=== PATIENT | male | born 1955 | race Caucasian/White ===

== ENCOUNTER 2018-08-17 07:43 | Day surgery (SDC) | payer OTHER ==
[2018-08-17] MEDS ORDERED: Lidocaine 2% 100 MG/5 ML Syringe IVPUSH ONE (07:44)
[2018-08-17] MEDS ORDERED: fentaNYL 100 MCG/2 ML SDV IV ONE (07:44)
[2018-08-17] MEDS ORDERED: Propofol 200 MG/20 ML SDV IV ONE (07:44)
[2018-08-17] MEDS ORDERED: Dexamethasone 4 MG/ML 5 ML MDV IVPUSH ONE (07:44)
[2018-08-17] MEDS ORDERED: Lactated Ringers 1,000 ML IV ONE (07:44)
[2018-08-17] MEDS ORDERED: Ketorolac 30 MG/ML SDV IVPUSH ONE (07:44)
[2018-08-17] MEDS ORDERED: Ondansetron 4 MG/2 ML SDV IVPUSH ONE (07:44)
[2018-08-17] MEDS ORDERED: Midazolam 1 MG/ML 2 ML SDV IV ONE (07:44)
[2018-08-17] MEDS ORDERED: Lactated Ringers 1,000 ML IV SCH (07:45)
[2018-08-17] MEDS: ceFAZolin 2 GM in Premix Bag 1 BAG IV ONE ×2 (09:45→10:14)
[2018-08-17] MEDS ORDERED: Bupivacaine 0.5% 30 ML SDV ONE (10:24)
[2018-08-17] MEDS ORDERED: Lidocaine 1% with EPINEPHrine 1:100,000 20 ML MDV ONE (10:25)
[2018-08-17] MEDS ORDERED: Acetaminophen/HYDROcodone 325-5 MG Tab PO PRN (10:38)
--- NOTE | 2018-08-17 10:43 | PCM.OPNOTE ---
- General Post-Op/Procedure Note Date of Surgery/Procedure: 08/17/18 Operative Procedure(s): umbilical hernia repair with mesh Findings: 3 cm defect Pre Op Diagnosis: umbilical hernia withhout obstruction or gangrene Post-Op Diagnosis: Same Anesthesia Technique: General LMA, Local (10 ml 1 % lido with epi/0.5% buvipicaine) Primary Surgeon: Ananth Alcantara Anesthesia Provider: Andrés Maher Pathology: none Complications: None Condition: Good Free Text/Narrative:: see dictation
--- NOTE | 2018-08-17 10:50 | PREOP ---
ADMISSION DATE: 08/17/2018 CHIEF COMPLAINT: Umbilical hernia. HISTORY OF PRESENT ILLNESS: This is a 62-year-old white male, referred with a history of umbilical hernia, is asymptomatic. Has had a previous repair in the past that is subsequently broken down. He reports no obstructive symptoms. MEDICATIONS: 1. Janumet 50-1000 mg twice a day with meals. 2. Lipitor 20 mg every night at bedtime. 3. Lisinopril 5 mg once a day. 4. Ecotrin 81 mg daily. ALLERGIES: He has no known drug allergies. PAST MEDICAL HISTORY: Significant for diabetes mellitus, sleep apnea, obesity, as well as hypertriglyceridemia. PAST SURGICAL HISTORY: Significant for colonoscopy, laparoscopic umbilical hernia repair. FAMILY HISTORY: Significant for coronary heart disease, cirrhosis of the liver, and diabetes mellitus. SOCIAL HISTORY: The patient is . He has 3 children. 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 Does not smoke and does have a history of chewing tobacco. REVIEW OF SYSTEMS: CONSTITUTIONAL: Negative. HEENT: Negative. Eyes are negative. RESPIRATORY: Negative. CARDIOVASCULAR: Negative. GASTROINTESTINAL: Negative. GENITOURINARY: Negative. MUSCULOSKELETAL: He does have some occasional back pain. PHYSICAL EXAMINATION: GENERAL: This is a well-developed, well-nourished white male, appearing in no acute distress. HEENT: Exam was grossly within normal limits. LUNGS: Clear to auscultation. HEART: Regular rate and rhythm. Evaluation of the umbilicus revealed a small reducible hernia in the periumbilical area. SKIN: Clear. ASSESSMENT: Reducible umbilical hernia. PLAN: Open umbilical herniorrhaphy. Procedure and risks were explained to the patient to include bleeding, infection, injury to the underlying bowel as well as use of mesh. The patient expresses understanding and he asked us to proceed. /[id number] /MODL
[2018-08-17 12:20] VITALS: BP 114/61
--- NOTE | 2018-08-17 13:43 | OR ---
DATE OF OPERATION: 08/17/2018 SURGEON: Ananth Alcantara MD PROCEDURE PERFORMED: Umbilical hernia repair. PREOPERATIVE DIAGNOSIS: Umbilical hernia without mention of obstruction or gangrene. POSTOPERATIVE DIAGNOSIS: Umbilical hernia without mention of obstruction or gangrene. INDICATIONS FOR PROCEDURE: This is a 62-year-old white male who presents with a reducible umbilical hernia. Apparently, he has had a laparoscopic repair performed in the past. Hernia is present again and it is causing him no obstructive symptoms. INTRAOPERATIVE FINDINGS: The patient had a 3-cm defect, repaired with an 8.[address] hernia patch, reference number [id number], lot number [id number] with an expiration date of 01/18/2020. ANESTHESIA: A total of 10 mL of 1:1 mixture of 1% lidocaine with epinephrine and 0.5% bupivacaine was used to supplement our LMA anesthetic DESCRIPTION OF OPERATION: After an excellent LMA anesthesia was administered, the patient was prepped and draped in the usual sterile manner. Approximately 5 mL of our local mixture was used to infiltrate the planned incision site as well as the region around the umbilicus. A curvilinear incision was then carried out. The underlying subcu fat was divided using a combination of electrocautery and sharp dissection. The hernia sac was exposed. It was then entered and dissected free from the surrounding structures. The preperitoneal fat was reduced as well. We then developed a plane between the pre-peritoneum and the edge of the umbilical fascia. There was no evidence of any mesh from his previous repair that was noted. After developing our plane, the Ventralex ST hernia patch was then inserted. The tail was clipped as we sewed in the mesh to the anterior abdominal wall using a running 0 Prolene. The umbilicus was then tacked to the anterior abdominal wall using two interrupted 0 Vicryls and 4-0 Vicryl was used to close the skin. Steri-Strips were applied. Prior to closure of the skin, we did inject 5 mL more of our local into the fascial area, where the hernia mesh was, to aid in postoperative analgesia. The patient tolerated the procedure well and was taken to recovery room. /[id number] /MODL
[2018-08-18] MEDS: ceFAZolin 2 GM in Premix Bag 1 BAG IV ONE (11:05)
== END 2018-08-17 12:50 | disposition home or self-care (01) ==
LOC: FB.SDS 07:43
PROVIDERS: ATTEND Surgery
DX: K42.9 Umbilical hernia without obstruction or gangrene (principal); E11.9 Type 2 diabetes mellitus without complications; G47.30 Sleep apnea, unspecified; E66.9 Obesity, unspecified; E78.1 Pure hyperglyceridemia; Z79.82 Long term (current) use of aspirin; Z79.84 Long term (current) use of oral hypoglycemic drugs; Z79.899 Other long term (current) drug therapy; Z98.890 Other specified postprocedural states; Z68.35 Body mass index [BMI] 35.0-35.9, adult
CPT/HCPCS: 82962; A9270-GY; C1781; J0690; J1100; J1885; J2001; J2250; J2405; J2704; J3010; J3490; J7120

== ENCOUNTER 2019-03-06 15:52 | Emergency (ER) | payer OTHER ==
[2019-03-06] MEDS ORDERED: Ondansetron 4 MG Tab.DIS PO ONE (15:53)
[2019-03-06] MEDS ORDERED: Sodium Chloride 0.9% 10 ML Syringe FLUSH PRN (15:59)
[2019-03-06] MEDS ORDERED: Sodium Chloride 0.9% 1,000 ML IV ONE ×2 (15:59→17:41)
[2019-03-06] MEDS ORDERED: Ondansetron 4 MG/2 ML SDV IVPUSH ONE (16:00)
[2019-03-06] MEDS ORDERED: HYDROmorphone 2 MG/ML SDV IVPUSH ONE (16:00)
--- NOTE | 2019-03-06 16:07 | EDM.PDOC ---
ED HPI GENERAL MEDICAL PROBLEM - General Chief Complaint: Flank Pain Stated Complaint: LOWER ABD AND BACK PAIN Time Seen by Provider: 03/06/19 16:01 Source of Information: Reports: Patient, Family History Limitations: Reports: No Limitations - History of Present Illness INITIAL COMMENTS - FREE TEXT/NARRATIVE: Patient developed severe right flank pain @40 min ago associated with nausea, he [facility] No relief with Hydrododone. He has noted grossly bloody urine since the procedure, and urine output has decreased throughout the day. Onset: Sudden Onset Date: 03/06/19 Onset Time: 15:15 Location: Reports: Abdomen Quality: Reports: Ache Severity: Severe Associated Symptoms: Reports: Nausea/Vomiting Treatments [employer]: Reports: Other (see below) (Valentine 5/325 two tablets) right flank Pain Score (Numeric/FACES): 10 - Related Data Allergies Allergy/AdvReac Type Severity Reaction Status Date / Time No Known Allergies Allergy Verified 08/16/18 14:42 Home Meds: Home Meds Aspirin [Adult Low Dose Aspirin EC] 81 mg PO DAILY 10/08/13 [History] metFORMIN HCl [Metformin HCl] 1,000 mg PO BIDAC 10/08/13 [History] Blood-Glucose Meter [Onetouch Verio] 1 strip .XX DAILY 08/16/18 [History] Lancets [Onetouch Delica] 1 each .XX DAILY 08/16/18 [History] Lisinopril 1 tab PO DAILY 08/16/18 [History] atorvaSTATin [Lipitor] 1 tab PO BEDTIME 08/16/18 [History] Acetaminophen/HYDROcodone [Valentine 325-5 MG] 1 - 2 tab PO Q6H PRN #20 tab [Rx] Celecoxib [CeleBREX] 200 mg PO BID #10 cap 08/17/18 [Rx] Docusate Sodium [Colace] 100 mg PO BID #20 capsule 08/17/18 [Rx] Past Medical History HEENT History: Reports: Impaired Vision Cardiovascular History: Reports: Other (See Below) Other Cardiovascular History: ABNORMAL EKG AT ONE TIME BUT NOTHING EVERY CAME OF IT. Respiratory History: Reports: None Gastrointestinal History: Reports: GERD Genitourinary History: Reports: Renal Calculus Musculoskeletal History: Reports: Back Pain, Chronic Endocrine/Metabolic History: Reports: Diabetes, Type II, Obesity/BMI 30+ - Infectious Disease History Infectious Disease History: Reports: Chicken Pox - Past Surgical History HEENT Surgical History: Reports: None Respiratory Surgical History: Reports: None GI Surgical History: Reports: Cholecystectomy, Colonoscopy, Hernia, Abdominal, Other (See Below) Other GI Surgeries/Procedures: KIDNEY STONE BLASTED. Social & Family History - Family History Family Medical History: Noncontributory - Caffeine Use Caffeine Use: Reports: Soda ED ROS GENERAL - Review of Systems Review Of Systems: ROS reveals no pertinent complaints other than HPI. ED EXAM, GI/ABD - Physical Exam Exam: See Below Exam Limited By: No Limitations General Appearance: Alert, WD/WN, Mild Distress Ears: Normal External Exam Nose: Normal Inspection Throat/Mouth: No Airway Compromise Head: Atraumatic, Normocephalic Neck: Full Range of Motion Respiratory/Chest: No Respiratory Distress GI/Abdominal Exam: Normal Bowel Sounds, Soft, Tender (moderate rlq). No: Guarding Back Exam: Full Range of Motion Extremities: Normal Range of Motion Neurological: Alert, Normal Cognition Psychiatric: Normal Affect Skin Exam: Warm, Dry, Intact Course - Vital Signs Last Recorded V/S: Last Vital Signs Temp 36.8 C 03/06/19 19:20 Pulse 87 03/06/19 19:20 Resp 20 03/06/19 19:20 BP 147/78 H 03/06/19 19:20 Pulse Ox 95 03/06/19 19:20 - Orders/Labs/Meds Orders: Active Orders 24 hr Category Date Time Status Bladder Scan [RC] ASDIRECTED Care 03/06/19 15:59 Active Abdomen Pelvis wo Cont [CT] Stat Exams 03/06/19 16:01 Taken Saline Lock Insert [OM.PC] Routine Oth 03/06/19 15:59 Ordered Labs: Laboratory Tests 03/06/19 03/06/19 03/06/19 Range/Units 16:10 16:10 17:36 WBC 6.7 (4.5-12.0) X10-3/uL RBC 4.73 (4.30-5.75) x10(6)uL Hgb 14.6 (13.5-17.8) g/dL Hct 43.4 (30.0-51.3) % MCV 91.6 (80-96) fL MCH 30.9 (27.7-33.6) pg MCHC 33.7 (32.2-35.4) g/dL RDW 12.3 (11.5-15.5) % Plt Count 141 (125-369) X10(3)uL MPV 7.1 L (7.4-10.4) fL Neut % (Auto) 80.3 (46-82) % Lymph % (Auto) 10.0 L (13-37) % [place] % (Auto) 6.1 (4-12) % Eos % (Auto) 1 (1.0-5.0) % Baso % (Auto) 2 (0-2) % Neut # (Auto) 5.2 (1.6-8.3) # Lymph # (Auto) 0.7 (0.6-5.0) # [place] # (Auto) 0.4 (0.0-1.3) # Eos # (Auto) 0.1 (0.0-0.8) # Baso # (Auto) 0.2 (0.0-0.2) # Sodium 137 (135-145) mmol/L Potassium 3.9 (3.5-5.3) mmol/L Chloride 100 (100-110) mmol/L Carbon Dioxide 26 (21-32) mmol/L BUN 13 (7-18) mg/dL Creatinine 1.2 (0.70-1.30) mg/dL Est Cr Clr Drug Dosing TNP Estimated GFR (MDRD) > 60 (>60) BUN/Creatinine Ratio 10.8 (9-20) Glucose 233 H (80-116) mg/dL Calcium 8.6 (8.6-10.2) mg/dL Total Bilirubin 0.7 (0.1-1.3) mg/dL AST 44 H (5-25) IU/L ALT 58 H (12-36) U/L Alkaline Phosphatase 61 (56-112) IU/L Total Protein 7.2 (6.0-8.0) g/dL Albumin 3.6 (3.2-4.6) g/dL Globulin 3.6 g/dL Albumin/Globulin Ratio 1.0 Urine Color Yellow (YELLOW) Urine Appearance Clear (CLEAR) Urine pH 7.0 H (5.0-6.5) Ur Specific [place] 1.005 L (1.010-1.025) Urine Protein Negative (NEGATIVE) mg/dL Urine Glucose (UA) >1000 H (NORMAL) mg/dL Urine Ketones 15 H (NEGATIVE) mg/dL Urine Occult Blood Large H (NEGATIVE) Urine Nitrite Negative (NEGATIVE) Urine Bilirubin Negative (NEGATIVE) Urine Urobilinogen Normal (NEGATIVE) mg/dL Ur Leukocyte Esterase Negative (NEGATIVE) Urine RBC 30-40 H (0-5) Urine WBC 0-5 (0-5) Ur Squamous Epith Cells Few H (NS,R,O) Amorphous Sediment Few Urine Bacteria Few H (NS) Meds: Medications Discontinued Medications Generic Name Dose Route Start Last Admin Trade Name Freq PRN Reason Stop Dose Admin Hydromorphone HCl 1 mg 03/06/19 16:00 03/06/19 16:14 Dilaudid IVPUSH 03/06/19 16:01 1 mg ONETIME ONE Administration Sodium Chloride 1,000 mls @ 999 mls/hr 03/06/19 15:59 03/06/19 16:37 Normal Saline IV 03/06/19 16:59 999 mls/hr .BOLUS ONE Administration Sodium Chloride 1,000 mls @ 999 mls/hr 03/06/19 17:41 03/06/19 17:36 Normal Saline IV 03/06/19 18:41 999 mls/hr .BOLUS ONE Administration Ketorolac Tromethamine 15 mg 03/06/19 17:29 03/06/19 17:35 Toradol IVPUSH 03/06/19 17:30 15 mg ONETIME ONE Administration Ondansetron HCl 4 mg 03/06/19 16:00 03/06/19 16:14 Zofran IVPUSH 03/06/19 16:01 4 mg ONETIME ONE Administration Sodium Chloride 10 ml 03/06/19 15:59 03/06/19 16:19 Saline Flush FLUSH 10 ml ASDIRECTED PRN Administration Keep Vein Open Tamsulosin HCl 0.4 mg 03/06/19 16:38 03/06/19 16:56 Flomax PO 03/06/19 16:39 0.4 mg ONETIME ONE Administration - Radiology Interpretation Free Text/Narrative:: CT Abd/Pelvis w/o contrast: Two small stones a the distal right ureter with mild hydronephrosis - Re-Assessments/Exams Free Text/Narrative Re-Assessment/Exam: 03/06/19 16:05 Bladder scan: 48 ml Departure - Departure Time of Disposition: 19:25 Disposition: Home, Self-Care 01 Condition: Good Clinical Impression: Ureteric colic - Discharge Information *PRESCRIPTION DRUG MONITORING PROGRAM REVIEWED*: No *COPY OF PRESCRIPTION DRUG MONITORING REPORT IN PATIENT MARCI: Not Applicable Instructions: Kidney Stones, [id number] Referrals: Baron Aldrich MD [Primary Care Provider] - Forms: ED Department Discharge Care Plan Goals: Continue Valentine, Take Toradol and Zofran as needed Follow up as PLanned Increase your fluid intake - My Orders Last 24 Hours: My Active Orders 03/06/19 15:59 Bladder Scan [RC] ASDIRECTED Saline Lock Insert [OM.PC] Routine 03/06/19 16:01 Abdomen Pelvis wo Cont [CT] Stat - Assessment/Plan Last 24 Hours: My Active Orders 03/06/19 15:59 Bladder Scan [RC] ASDIRECTED Saline Lock Insert [OM.PC] Routine 03/06/19 16:01 Abdomen Pelvis wo Cont [CT] Stat
[2019-03-06] MEDS ORDERED: Tamsulosin 0.4 MG Cap.ER PO ONE (16:38)
[2019-03-06] MEDS ORDERED: Ketorolac 30 MG/ML SDV IVPUSH ONE (17:29)
== END 2019-03-06 19:27 | disposition home or self-care (01) ==
LOC: FB.ED 15:52
DX: N13.2 Hydronephrosis with renal and ureteral calculous obstruction (principal); E11.9 Type 2 diabetes mellitus without complications; E66.9 Obesity, unspecified; Z79.82 Long term (current) use of aspirin; Z79.84 Long term (current) use of oral hypoglycemic drugs; Z79.899 Other long term (current) drug therapy
CPT/HCPCS: 36415; 74176; 80053; 81001; 85025; 96361; 96374; 96375; 99284-25; A9270-GY; J1170; J1885; J2405; J7030

== ENCOUNTER 2019-05-14 06:45 | Day surgery (SDC) | payer OTHER ==
[~2019-05-14 06:45] MED LIST: Lactated Ringers 1,000 ML IV SCH; Sodium Chloride 0.9% 10 ML Syringe FLUSH PRN
[2019-05-14] MEDS ORDERED: Lidocaine 1% PF 2 ML SDV INJECT ONE (06:46)
[2019-05-14] MEDS ORDERED: Propofol 200 MG/20 ML SDV IV ONE (06:46)
--- NOTE | 2019-05-14 07:38 | PCM.HP.2 ---
H&P History of Present Illness - General Date of Service: 05/14/19 Admit Problem/Dx: Admission Diagnosis/Problem Admission Diagnosis/Problem Colonoscopy - History of Present Illness Initial Comments - Free Text/Narative: Pt due for 5 yr follow up . last c scope demonstrated adenomatous polyps - Related Data Allergies/Adverse Reactions: Allergies Allergy/AdvReac Type Severity Reaction Status Date / Time No Known Allergies Allergy Verified 05/14/19 07:11 Home Medications: Home Meds Aspirin [Adult Low Dose Aspirin EC] 81 mg PO DAILY 10/08/13 [History] Lisinopril 1 tab PO DAILY 08/16/18 [History] atorvaSTATin [Lipitor] 1 tab PO BEDTIME 08/16/18 [History] Ubiquinol 200 mg PO DAILY 05/10/19 [History] sitaGLIPtin Phos/Metformin HCl [Janumet 50-1,000 MG] 1 each PO BIDMEALS [History] Past Medical History HEENT History: Reports: Impaired Vision Cardiovascular History: Reports: High Cholesterol, Other (See Below) Respiratory History: Reports: Sleep Apnea Gastrointestinal History: Reports: GERD Genitourinary History: Reports: Renal Calculus Musculoskeletal History: Reports: Back Pain, Chronic Neurological History: Reports: None Psychiatric History: Reports: None Endocrine/Metabolic History: Reports: Diabetes, Type II, Obesity/BMI 30+ Hematologic History: Reports: None Immunologic History: Reports: None Oncologic (Cancer) History: Reports: None - Infectious Disease History Infectious Disease History: Reports: Chicken Pox - Past Surgical History HEENT Surgical History: Reports: None Respiratory Surgical History: Reports: None GI Surgical History: Reports: Cholecystectomy, Colonoscopy, Hernia, Abdominal, Other (See Below) Other GI Surgeries/Procedures: KIDNEY STONE BLASTED. Male Surgical History: Reports: Renal Calculus Social & Family History - Family History Family Medical History: Noncontributory - Caffeine Use Caffeine Use: Reports: Soda H&P Review of Systems - Review of Systems: Review Of Systems: See Below General: Reports: No Symptoms HEENT: Reports: No Symptoms Pulmonary: Reports: No Symptoms Cardiovascular: Reports: No Symptoms Gastrointestinal: Reports: No Symptoms Genitourinary: Reports: No Symptoms Musculoskeletal: Reports: No Symptoms Skin: Reports: No Symptoms Neurological: Reports: No Symptoms Exam - Exam Exam: See Below - Vital Signs Vital Signs: Last Vital Signs Temp 97.4 F 05/14/19 06:55 Pulse 82 05/14/19 06:55 Resp 16 05/14/19 06:55 BP 150/87 H 05/14/19 06:55 Pulse Ox 96 05/14/19 06:55 Weight: 113.806 kg - Exam General: Alert, Oriented Lungs: Clear to Auscultation, Normal Respiratory Effort Cardiovascular: Regular Rate, Regular Rhythm GI/Abdominal Exam: Normal Bowel Sounds, Soft, Non-Tender - Patient Data Lab Results Last 24 hrs: Laboratory Results - last 24 hr 05/14/19 Range/Units 07:10 POC Glucose 164 H (80-116) mg/dL Sepsis Event Note - Focused Exam Vital Signs: Vital Signs Temp Pulse Resp BP Pulse Ox 05/14/19 06:55 97.4 F 82 16 150/87 H 96 Date Exam was Performed: 05/14/19 Time Exam was Performed: 07:43 *Q Meaningful Use (ADM) - VTE *Q VTE Pharmacological Contraindications *Q: Patient Scheduled Surgery - Problem List (1) Personal history of colonic polyps SNOMED Code(s): 125405428 ICD Code: Z86.010 - PERSONAL HISTORY OF COLONIC POLYPS Status: Acute Current Visit: Yes Problem List Initiated/Reviewed/Updated: Yes Orders Last 24hrs: Active Orders 24 hr Category Date Time Status Patient Status [ADT] Routine ADT 05/14/19 06:45 Ordered Blood Glucose Check, Bedside [RC] ONETIME Care 05/14/19 06:45 Active Patient to Empty Bladder [RC] ASDIRECTED Care 05/14/19 06:45 Active Verify Patient Consent Obtain [RC] ASDIRECTED Care 05/14/19 06:45 Active Nothing Per Oral Diet [DIET] Diet 05/14/19 Breakfast Ordered Lactated Ringers [Ringers, Lactated] 1,000 ml Med 05/14/19 06:45 Active IV ASDIRECTED Sodium Chloride 0.9% [Saline Flush] Med 05/14/19 06:45 Active 10 ml FLUSH ASDIRECTED PRN Peripheral IV Insertion Adult [OM.PC] Routine Oth 05/14/19 06:45 Ordered Medication Orders Lactated Ringer's (Ringers, Lactated) 1,000 mls @ 125 mls/hr IV ASDIRECTED SHRUTHI Last Admin: 05/14/19 07:20 Dose: 125 mls/hr Sodium Chloride (Saline Flush) 10 ml FLUSH ASDIRECTED PRN PRN Reason: Keep Vein Open Assessment/Plan Comment:: for cscope procedure and risks explained to the patient. Bleeding, infection and perforation. Expressed understanding and asks us to proceed.
[2019-05-14] MEDS ORDERED: Simethicone Drops 40 MG/0.6 ML 30 ML Bottle ONE (08:37)
--- NOTE | 2019-05-14 08:56 | PCM.OPNOTE ---
- General Post-Op/Procedure Note Date of Surgery/Procedure: 05/14/19 Operative Procedure(s): c scope with bx cold forcep Findings: transverse colon polyp scattered diverticuli Pre Op Diagnosis: personal hx of colon polyp Post-Op Diagnosis: transverse colon polyp. scattered diverticuli Anesthesia Technique: MAC Primary Surgeon: Ananth Alcantara Anesthesia Provider: Andrés Maher Pathology: colon polyp Drain/Tube Comments:: see dictation Condition: Good
--- NOTE | 2019-05-14 15:19 | OR ---
DATE OF OPERATION: 05/14/2019 SURGEON: Ananth Alcantara MD PROCEDURE PERFORMED: Colonoscopy with cold forceps biopsy. PREOPERATIVE DIAGNOSIS: Personal history of colon polyps. POSTOPERATIVE DIAGNOSES: Scattered diverticula and transverse colon polyp. INDICATIONS FOR PROCEDURE: This 63-year-old white male, presents for followup scope. Last scope was 5 years ago, had some adenomatous polyps removed, presents for followup scope now. DESCRIPTION OF OPERATION: After an excellent IV sedation was administered, digital rectal exam was performed. No abnormality was noted. Flexible colonoscope was inserted and advanced to cecum. Prep was excellent. The following findings were noted. Ascending colon, unremarkable. Transverse colon, occasional diverticula. Polypoid lesion at the distal transverse colon, biopsied with cold biopsy forceps, sent for permanent. Descending colon, unremarkable. Sigmoid, scattered diverticula. Rectum and anus, unremarkable. Results will be sent to the patient by letter. He tolerated the procedure well. /[id number] /MODL
== END 2019-05-14 09:48 | disposition home or self-care (01) ==
LOC: FB.SDS 06:45
PROVIDERS: ATTEND Surgery
DX: Z12.11 Encounter for screening for malignant neoplasm of colon (principal); D12.3 Benign neoplasm of transverse colon; K57.30 Diverticulosis of large intestine without perforation or abscess without bleeding; E11.9 Type 2 diabetes mellitus without complications; E78.00 Pure hypercholesterolemia, unspecified; E78.1 Pure hyperglyceridemia; G47.30 Sleep apnea, unspecified; K21.9 Gastro-esophageal reflux disease without esophagitis; E66.9 Obesity, unspecified; Z68.35 Body mass index [BMI] 35.0-35.9, adult; Z86.010 Personal history of colon polyps; Z79.82 Long term (current) use of aspirin; Z79.84 Long term (current) use of oral hypoglycemic drugs; Z79.899 Other long term (current) drug therapy; G47.33 Obstructive sleep apnea (adult) (pediatric)
CPT/HCPCS: 82962; 88305; A9270-GY; J2001; J2704; J7120

== ENCOUNTER 2021-01-06 12:57 | Emergency (ER) | payer OTHER ==
[2021-01-06] MEDS ORDERED: Aspirin 81 MG Tab.Chew PO ONE ×2 (13:08→13:31)
[2021-01-06] MEDS ORDERED: Sodium Chloride 0.9% 1,000 ML IV ONE ×2 (13:09→14:08)
[2021-01-06] MEDS: Nitroglycerin 0.4 MG Tab.SL SL PRN ×2 (13:16→13:30)
--- NOTE | 2021-01-06 14:23 | EDM.PDOC ---
ED HPI GENERAL MEDICAL PROBLEM - General Chief Complaint: Chest Pain Stated Complaint: CHEST PAIN, DIZZINESS Time Seen by Provider: 01/06/21 13:00 Source of Information: Reports: Patient, Family History Limitations: Reports: No Limitations - History of Present Illness INITIAL COMMENTS - FREE TEXT/NARRATIVE: c/o "not feeling well" ate bfast and lunch, working on a vehicle with a helper, used a car hoist that he had picked up in [place] yesterday to move heavy parts, used a fork lift, on his feet altho not doing lifting himself did not feel well by late morning, felt a littlle dizzy and sob, slight soreness in middle of chest which resolved came in and ate lunch, was going to see Dr Aldrich PCP in clinic when his Masha, retired RN, suggested he come to the ED Masha says "he is not a complainer" never smoked, no h/o CVD, had a stress test ~[address] on arrival here with Qs in III and AVF, no ST changes, occasional PVB noted on monitor BP inc'd, given NTG SL x 2 with no change in sxs or vital signs altho BP gradually dec'd to 123/77, RR dec'd 22 to 15, HR dec'd to [address] A1C ~7 labs n FH: bros x 2 with cardiac stents, one bro has had an HI, father from an HI 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[employer], returns to school tomorrow no dizzy/CP/sob in ED, still not feeling his normal self CxR 1v is neg on prelim ED read, no infiltr/effusions, no cardiomegaly - Related Data Allergies Allergy/AdvReac Type Severity Reaction Status Date / Time No Known Allergies Allergy Verified 01/06/21 14:46 Home Meds: Home Meds Aspirin [Adult Low Dose Aspirin EC] 81 mg PO DAILY 10/08/13 [History] Lisinopril 1 tab PO DAILY 08/16/18 [History] atorvaSTATin [Lipitor] 1 tab PO BEDTIME 08/16/18 [History] sitaGLIPtin Phos/Metformin HCl [Janumet 50-1,000 MG] 1 each PO BIDMEALS 05/10/19 [History] Diltiazem HCl [Diltiazem 24Hr ER] 120 mg PO DAILY #14 cap.er.24h 01/06/21 [Rx] Nitroglycerin 0.4 mg SL Q5M PRN #20 tab.subl 01/06/21 [Rx] Semaglutide [Ozempic] 0.25 mg SQ MO 01/06/21 [History] Past Medical History HEENT History: Reports: Impaired Vision Cardiovascular History: Reports: High Cholesterol, Other (See Below) Respiratory History: Reports: Sleep Apnea Gastrointestinal History: Reports: GERD Genitourinary History: Reports: Renal Calculus Musculoskeletal History: Reports: Back Pain, Chronic Neurological History: Reports: None Psychiatric History: Reports: None Endocrine/Metabolic History: Reports: Diabetes, Type II, Obesity/BMI 30+ Hematologic History: Reports: None Immunologic History: Reports: None Oncologic (Cancer) History: Reports: None - Infectious Disease History Infectious Disease History: Reports: Chicken Pox - Past Surgical History HEENT Surgical History: Reports: None Respiratory Surgical History: Reports: None GI Surgical History: Reports: Cholecystectomy, Colonoscopy, Hernia, Abdominal, Other (See Below) Other GI Surgeries/Procedures: KIDNEY STONE BLASTED. Male Surgical History: Reports: Renal Calculus Social & Family History - Family History Family Medical History: No Pertinent Family History - Caffeine Use Caffeine Use: Reports: Soda ED ROS GENERAL - Review of Systems Review Of Systems: See Below Constitutional: Reports: No Symptoms. Denies: Fever, Chills, Malaise, Weakness, Fatigue, Diaphoresis, Decreased Appetite HEENT: Reports: No Symptoms Respiratory: Reports: Shortness of Breath, Other (has had COVID vax). Denies: Cough Cardiovascular: Reports: Chest Pain Endocrine: Reports: No Symptoms GI/Abdominal: Reports: No Symptoms : Reports: No Symptoms Musculoskeletal: Reports: No Symptoms Skin: Reports: No Symptoms Neurological: Reports: No Symptoms Psychiatric: Reports: No Symptoms Hematologic/Lymphatic: Reports: No Symptoms Immunologic: Reports: No Symptoms ED EXAM, GENERAL - Physical Exam Exam: See Below Exam Limited By: No Limitations General Appearance: Alert, WD/WN, No Apparent Distress Ears: Hearing Grossly Normal Nose: Normal Inspection Throat/Mouth: Normal Inspection, Normal Lips, Normal Teeth, Normal Voice, No Airway Compromise Head: Atraumatic, Normocephalic Neck: Normal Inspection, Supple, Non-Tender, Full Range of Motion Respiratory/Chest: No Respiratory Distress, Lungs Clear, Normal Breath Sounds, Chest Non-Tender Cardiovascular: Regular Rate, Rhythm, No Edema, No Gallop, No Murmur GI/Abdominal: Normal Bowel Sounds, Soft, Non-Tender, No Organomegaly, No Distention Back Exam: Normal Inspection, Full Range of Motion Extremities: Normal Inspection, Normal Range of Motion, Non-Tender, No Pedal Edema Neurological: Alert, Oriented, CN II-XII Intact, Normal Cognition, No Motor/Sensory Deficits Psychiatric: Normal Affect, Normal Mood Skin Exam: Warm, Dry, Intact, Normal Color, No Rash Lymphatic: No Adenopathy #1 Interpretation EKG Date: 01/06/21 Time: 12:52 Rhythm: Other (ST) Rate (Beats/Min): 116 [place]: Normal P-Wave: Present QRS: Normal QT: Normal EKG Interpretation Comments: old IWMI with Qs in III and AVF, nonspecific flat T in AVL, no acute/ischemic changes c/w 06-12-97 and same changes in III and AVF noted then #2 Interpretation EKG Date: 01/06/21 Time: 16:39 Rhythm: NSR Rate (Beats/Min): 93 [place]: Normal P-Wave: Present QRS: Normal ST-T: Normal QT: Normal EKG Interpretation Comments: EKG repeated after HR dec'd to less than 100, pt remained asxs, no change c/w previous nearly 4h earlier, no acute/ischemic changes Course - Vital Signs Last Recorded V/S: Last Vital Signs Temp 36.9 C 01/06/21 13:00 Pulse 115 H 01/06/21 13:00 Resp 16 01/06/21 13:00 BP 173/93 H 01/06/21 13:00 Pulse Ox 95 01/06/21 13:00 Orthostatic Blood Pressure [ 137/70 Standing] Orthostatic Blood Pressure [ 126/74 Sitting] Orthostatic Blood Pressure [ 142/83 Supine] - Orders/Labs/Meds Orders: Active Orders 24 hr Category Date Time Status EKG Documentation Completion [RC] ASDIRECTED Care 01/06/21 16:41 Ordered Orthostatic Vital Signs [RC] ASDIRECTED Care 01/06/21 14:08 Active CULTURE BLOOD [BC] Stat Lab 01/06/21 13:25 Received CULTURE BLOOD [BC] Urgent Lab 01/06/21 13:30 Received Nitroglycerin [Nitrostat] Med 01/06/21 13:54 Active 0.4 mg SL Q5M PRN Blood Culture x2 Reflex Set [OM.PC] Urgent Oth 01/06/21 13:17 Ordered EKG 12 Lead [EK] Routine Ther 01/06/21 13:08 Ordered EKG 12 Lead [EK] Routine Ther 01/06/21 16:41 Ordered Medication Orders Nitroglycerin (Nitroglycerin 0.4 Mg Tab.Sl) 0.4 mg SL Q5M PRN PRN Reason: Chest Pain Labs: Laboratory Tests 01/06/21 01/06/21 01/06/21 Range/Units 13:25 13:25 13:25 WBC 9.2 (3.2-10.1) x10-3/uL RBC 4.90 (3.90-5.90) x10(6)uL Hgb 15.6 (12.9-17.7) g/dL Hct 44.8 (38.3-50.1) % MCV 91.4 (80.8-98.7) fL MCH 31.9 (27.0-33.3) pg MCHC 34.8 (28.7-35.3) g/dL RDW 14.2 (12.4-15.0) % Plt Count 177 (117-477) x10(3)uL MPV 7.3 (6.7-11.0) fL Neut % (Auto) 64.5 (40.3-71.8) % Lymph % (Auto) 26.7 (15.8-45.3) % Sutter % (Auto) 6.4 (5.5-15.2) % Eos % (Auto) 2.0 (0.1-6.8) % Baso % (Auto) 0.4 (0.3-3.8) % Neut # (Auto) 5.9 (1.7-6.9) x10-3/uL Lymph # (Auto) 2.5 (0.5-4.5) x10-3/uL Sutter # (Auto) 0.6 (0.0-1.2) x10-3/uL Eos # (Auto) 0.2 (0.0-0.6) x10-3/uL Baso # (Auto) 0.0 (0.0-0.3) x10-3/uL PT (9.0-11.1) sec INR (1.00-1.24) D-Dimer, Quantitative 0.21 (0.0-0.59) mg/LFEU Sodium 138 (135-145) mmol/L Potassium 4.2 (3.5-5.3) mmol/L Chloride 100 (100-110) mmol/L Carbon Dioxide 22 (21-32) mmol/L BUN 18 (7-18) mg/dL Creatinine 1.3 (0.70-1.30) mg/dL Est Cr Clr Drug Dosing TNP Estimated GFR (MDRD) 56 L (>60) BUN/Creatinine Ratio 13.8 (9-20) Glucose 237 H (80-116) mg/dL Lactic Acid (0.4-2.0) mmol/L Calcium 9.6 (8.6-10.2) mg/dL Total Bilirubin 0.8 (0.1-1.3) mg/dL AST 25 D (5-25) IU/L ALT 37 H D (12-36) U/L Alkaline Phosphatase 67 (56-112) IU/L Troponin I (4.0-60.3) pg/mL C-Reactive Protein (0.5-0.9) mg/dL Total Protein 7.4 (6.0-8.0) g/dL Albumin 4.0 (3.2-4.6) g/dL Globulin 3.4 g/dL Albumin/Globulin Ratio 1.2 Urine Color (YELLOW) Urine Appearance (CLEAR) Urine pH (5.0-6.5) Ur Specific [place] (1.010-1.025) Urine Protein (NEGATIVE) mg/dL Urine Glucose (UA) (NORMAL) mg/dL Urine Ketones (NEGATIVE) mg/dL Urine Occult Blood (NEGATIVE) Urine Nitrite (NEGATIVE) Urine Bilirubin (NEGATIVE) Urine Urobilinogen (NEGATIVE) mg/dL Ur Leukocyte Esterase (NEGATIVE) Urine RBC (0-5) Urine WBC (0-5) Ur Squamous Epith Cells (NS,R,O) Urine Bacteria (NS) SARS-CoV-2 RNA (TOY) (NEGATIVE) 01/06/21 01/06/21 01/06/21 Range/Units 13:25 13:25 13:25 WBC (3.2-10.1) x10-3/uL RBC (3.90-5.90) x10(6)uL Hgb (12.9-17.7) g/dL Hct (38.3-50.1) % MCV (80.8-98.7) fL MCH (27.0-33.3) pg MCHC (28.7-35.3) g/dL RDW (12.4-15.0) % Plt Count (117-477) x10(3)uL MPV (6.7-11.0) fL Neut % (Auto) (40.3-71.8) % Lymph % (Auto) (15.8-45.3) % Sutter % (Auto) (5.5-15.2) % Eos % (Auto) (0.1-6.8) % Baso % (Auto) (0.3-3.8) % Neut # (Auto) (1.7-6.9) x10-3/uL Lymph # (Auto) (0.5-4.5) x10-3/uL Sutter # (Auto) (0.0-1.2) x10-3/uL Eos # (Auto) (0.0-0.6) x10-3/uL Baso # (Auto) (0.0-0.3) x10-3/uL PT 11.0 (9.0-11.1) sec INR 1.02 (1.00-1.24) D-Dimer, Quantitative (0.0-0.59) mg/LFEU Sodium (135-145) mmol/L Potassium (3.5-5.3) mmol/L Chloride (100-110) mmol/L Carbon Dioxide (21-32) mmol/L BUN (7-18) mg/dL Creatinine (0.70-1.30) mg/dL Est Cr Clr Drug Dosing Estimated GFR (MDRD) (>60) BUN/Creatinine Ratio (9-20) Glucose (80-116) mg/dL Lactic Acid 4.5 H* (0.4-2.0) mmol/L Calcium (8.6-10.2) mg/dL Total Bilirubin (0.1-1.3) mg/dL AST (5-25) IU/L ALT (12-36) U/L Alkaline Phosphatase (56-112) IU/L Troponin I 12.3 (4.0-60.3) pg/mL C-Reactive Protein (0.5-0.9) mg/dL Total Protein (6.0-8.0) g/dL Albumin (3.2-4.6) g/dL Globulin g/dL Albumin/Globulin Ratio Urine Color (YELLOW) Urine Appearance (CLEAR) Urine pH (5.0-6.5) Ur Specific [place] (1.010-1.025) Urine Protein (NEGATIVE) mg/dL Urine Glucose (UA) (NORMAL) mg/dL Urine Ketones (NEGATIVE) mg/dL Urine Occult Blood (NEGATIVE) Urine Nitrite (NEGATIVE) Urine Bilirubin (NEGATIVE) Urine Urobilinogen (NEGATIVE) mg/dL Ur Leukocyte Esterase (NEGATIVE) Urine RBC (0-5) Urine WBC (0-5) Ur Squamous Epith Cells (NS,R,O) Urine Bacteria (NS) SARS-CoV-2 RNA (TOY) (NEGATIVE) 01/06/21 01/06/21 01/06/21 Range/Units 13:25 14:21 15:00 WBC (3.2-10.1) x10-3/uL RBC (3.90-5.90) x10(6)uL Hgb (12.9-17.7) g/dL Hct (38.3-50.1) % MCV (80.8-98.7) fL MCH (27.0-33.3) pg MCHC (28.7-35.3) g/dL RDW (12.4-15.0) % Plt Count (117-477) x10(3)uL MPV (6.7-11.0) fL Neut % (Auto) (40.3-71.8) % Lymph % (Auto) (15.8-45.3) % Sutter % (Auto) (5.5-15.2) % Eos % (Auto) (0.1-6.8) % Baso % (Auto) (0.3-3.8) % Neut # (Auto) (1.7-6.9) x10-3/uL Lymph # (Auto) (0.5-4.5) x10-3/uL Sutter # (Auto) (0.0-1.2) x10-3/uL Eos # (Auto) (0.0-0.6) x10-3/uL Baso # (Auto) (0.0-0.3) x10-3/uL PT (9.0-11.1) sec INR (1.00-1.24) D-Dimer, Quantitative (0.0-0.59) mg/LFEU Sodium (135-145) mmol/L Potassium (3.5-5.3) mmol/L Chloride (100-110) mmol/L Carbon Dioxide (21-32) mmol/L BUN (7-18) mg/dL Creatinine (0.70-1.30) mg/dL Est Cr Clr Drug Dosing Estimated GFR (MDRD) (>60) BUN/Creatinine Ratio (9-20) Glucose (80-116) mg/dL Lactic Acid (0.4-2.0) mmol/L Calcium (8.6-10.2) mg/dL Total Bilirubin (0.1-1.3) mg/dL AST (5-25) IU/L ALT (12-36) U/L Alkaline Phosphatase (56-112) IU/L Troponin I (4.0-60.3) pg/mL C-Reactive Protein < 0.2 L (0.5-0.9) mg/dL Total Protein (6.0-8.0) g/dL Albumin (3.2-4.6) g/dL Globulin g/dL Albumin/Globulin Ratio Urine Color Yellow (YELLOW) Urine Appearance Clear (CLEAR) Urine pH 5.0 (5.0-6.5) Ur Specific [place] 1.020 (1.010-1.025) Urine Protein Negative (NEGATIVE) mg/dL Urine Glucose (UA) >1000 H (NORMAL) mg/dL Urine Ketones 15 H (NEGATIVE) mg/dL Urine Occult Blood Negative (NEGATIVE) Urine Nitrite Negative (NEGATIVE) Urine Bilirubin Negative (NEGATIVE) Urine Urobilinogen Normal (NEGATIVE) mg/dL Ur Leukocyte Esterase Negative (NEGATIVE) Urine RBC 0-5 (0-5) Urine WBC 0-5 (0-5) Ur Squamous Epith Cells Few H (NS,R,O) Urine Bacteria Few H (NS) SARS-CoV-2 RNA (TOY) Negative (NEGATIVE) 01/06/21 01/06/21 Range/Units 15:35 15:35 WBC (3.2-10.1) x10-3/uL RBC (3.90-5.90) x10(6)uL Hgb (12.9-17.7) g/dL Hct (38.3-50.1) % MCV (80.8-98.7) fL MCH (27.0-33.3) pg MCHC (28.7-35.3) g/dL RDW (12.4-15.0) % Plt Count (117-477) x10(3)uL MPV (6.7-11.0) fL Neut % (Auto) (40.3-71.8) % Lymph % (Auto) (15.8-45.3) % Sutter % (Auto) (5.5-15.2) % Eos % (Auto) (0.1-6.8) % Baso % (Auto) (0.3-3.8) % Neut # (Auto) (1.7-6.9) x10-3/uL Lymph # (Auto) (0.5-4.5) x10-3/uL [place] # (Auto) (0.0-1.2) x10-3/uL Eos # (Auto) (0.0-0.6) x10-3/uL Baso # (Auto) (0.0-0.3) x10-3/uL PT (9.0-11.1) sec INR (1.00-1.24) D-Dimer, Quantitative (0.0-0.59) mg/LFEU Sodium (135-145) mmol/L Potassium (3.5-5.3) mmol/L Chloride (100-110) mmol/L Carbon Dioxide (21-32) mmol/L BUN (7-18) mg/dL Creatinine (0.70-1.30) mg/dL Est Cr Clr Drug Dosing Estimated GFR (MDRD) (>60) BUN/Creatinine Ratio (9-20) Glucose (80-116) mg/dL Lactic Acid 2.4 H* (0.4-2.0) mmol/L Calcium (8.6-10.2) mg/dL Total Bilirubin (0.1-1.3) mg/dL AST (5-25) IU/L ALT (12-36) U/L Alkaline Phosphatase (56-112) IU/L Troponin I 13.4 (4.0-60.3) pg/mL C-Reactive Protein (0.5-0.9) mg/dL Total Protein (6.0-8.0) g/dL Albumin (3.2-4.6) g/dL Globulin g/dL Albumin/Globulin Ratio Urine Color (YELLOW) Urine Appearance (CLEAR) Urine pH (5.0-6.5) Ur Specific [place] (1.010-1.025) Urine Protein (NEGATIVE) mg/dL Urine Glucose (UA) (NORMAL) mg/dL Urine Ketones (NEGATIVE) mg/dL Urine Occult Blood (NEGATIVE) Urine Nitrite (NEGATIVE) Urine Bilirubin (NEGATIVE) Urine Urobilinogen (NEGATIVE) mg/dL Ur Leukocyte Esterase (NEGATIVE) Urine RBC (0-5) Urine WBC (0-5) Ur Squamous Epith Cells (NS,R,O) Urine Bacteria (NS) SARS-CoV-2 RNA (TOY) (NEGATIVE) Meds: Medications Generic Name Dose Route Start Last Admin Trade Name Freq PRN Reason Stop Dose Admin Nitroglycerin 0.4 mg 01/06/21 13:54 Nitroglycerin 0.4 Mg Tab.Sl SL Q5M PRN Chest Pain Discontinued Medications Generic Name Dose Route Start Last Admin Trade Name Freq PRN Reason Stop Dose Admin Aspirin 243 mg 01/06/21 13:31 01/06/21 13:32 Aspirin 81 Mg Tab.Chew PO 01/06/21 13:32 243 mg ONETIME ONE Administration Sodium Chloride 1,000 mls @ 999 mls/hr 01/06/21 13:09 01/06/21 13:28 Normal Saline IV 01/06/21 14:09 999 mls/hr .BOLUS ONE Administration Sodium Chloride 1,000 mls @ 999 mls/hr 01/06/21 14:08 01/06/21 14:30 Normal Saline IV 01/06/21 15:08 999 mls/hr .BOLUS ONE Administration - Re-Assessments/Exams Free Text/Narrative Re-Assessment/Exam: 01/06/21 16:43 trop x 2 neg lactic improved over 2h SG 1.020, 15 mg/dl ketones in urine HR dec'd 116 to 98 over 1.5h, still in upper 90s questionable response to NTG, says he "felt more relaxed" altho no change in vs with either NTG (pt swallowed first one, 2nd one was SL) d/w Dr Greene who did not think he met admission criteria, wondered if metformin may have affected lactic acid d/w PCP Dr Aldrich who said he "knows pt very well," agrees with outpt management pt sees Dr Aldrich q6m, has an appointment in 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, "just meetings", 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:56 HR 102 after walking length of [place] twice, no dizzy use of dilt and NTG reviewed with pt and Masha repeat EKG with HR 93 is unremarkable, no change, BP 133/79 Departure - Departure Time of Disposition: 16:50 Disposition: Home, Self-Care 01 Condition: Good (moder dehydra) Clinical Impression: Moderate dehydration, Elevated lactic acid level, Sinus tachycardia - Discharge Information *PRESCRIPTION DRUG MONITORING PROGRAM REVIEWED*: Not Applicable *COPY OF PRESCRIPTION DRUG MONITORING REPORT IN PATIENT MARCI: Not Applicable Prescriptions: Diltiazem HCl [Diltiazem 24Hr ER] 120 mg PO DAILY #14 cap.er.24h Nitroglycerin 0.4 mg SL Q5M PRN #20 tab.subl PRN Reason: Chest Pain Instructions: Sinus Tachycardia, Dehydration, Adult Forms: ED Department Discharge Additional Instructions: Continue current medications. Take diltiazem ER 120 mg 1 tab daily to help with heart circulation. For chest discomfort or shortness of breath, take a nitroglycerin under the tongue. Increase fluids without caffeine. Limit activities. Avoid exertion until cleared by Dr Aldrich to do so. See Dr Aldrich in 4 days as scheduled. Return to Emergency Department if you are feeling worse. Sepsis Event Note (ED) - Focused Exam Vital Signs: Vital Signs Temp Pulse Resp BP Pulse Ox 01/06/21 13:00 36.9 C 115 H 16 173/93 H 95 - My Orders Last 24 Hours: My Active Orders 01/06/21 13:08 EKG 12 Lead [EK] Routine 01/06/21 13:17 Blood Culture x2 Reflex Set [OM.PC] Urgent 01/06/21 13:25 CULTURE BLOOD [BC] Stat 01/06/21 13:30 CULTURE BLOOD [BC] Urgent 01/06/21 13:54 Nitroglycerin [Nitrostat] 0.4 mg SL Q5M PRN 01/06/21 14:08 Orthostatic Vital Signs [RC] ASDIRECTED 01/06/21 16:41 EKG Documentation Completion [RC] ASDIRECTED EKG 12 Lead [EK] Routine - Assessment/Plan Last 24 Hours: My Active Orders 01/06/21 13:08 EKG 12 Lead [EK] Routine 01/06/21 13:17 Blood Culture x2 Reflex Set [OM.PC] Urgent 01/06/21 13:25 CULTURE BLOOD [BC] Stat 01/06/21 13:30 CULTURE BLOOD [BC] Urgent 01/06/21 13:54 Nitroglycerin [Nitrostat] 0.4 mg SL Q5M PRN 01/06/21 14:08 Orthostatic Vital Signs [RC] ASDIRECTED 01/06/21 16:41 EKG Documentation Completion [RC] ASDIRECTED EKG 12 Lead [EK] Routine
--- NOTE | 2021-01-06 15:36 | CR ---
INDICATION: Short of breath. CHEST ONE VIEW: An AP portable upright view of the chest 01/06/21 - no comparisons. The heart is normal in size. Overlying EKG leads are noted. The aorta is minimally tortuous. An active infiltrate or effusion was not identified. Exogenous obesity is suggested. IMPRESSION: No acute process. MTDD
== END 2021-01-06 17:08 | disposition home or self-care (01) ==
LOC: FB.ED 12:57
DX: E86.0 Dehydration (principal); R74.02 Elevation of levels of lactic acid dehydrogenase [LDH]; R00.0 Tachycardia, unspecified; E78.00 Pure hypercholesterolemia, unspecified; E11.9 Type 2 diabetes mellitus without complications; E66.9 Obesity, unspecified; Z68.33 Body mass index [BMI] 33.0-33.9, adult; Z79.82 Long term (current) use of aspirin; Z79.899 Other long term (current) drug therapy; Z20.822 Contact with and (suspected) exposure to COVID-19
CPT/HCPCS: 36415; 71045; 80053; 81001; 83605; 84484; 85025; 85379; 85610; 86140; 87040; 87635; 93005; 99285; A9270; J7030; U0002

== ENCOUNTER 2022-06-28 08:01 | Emergency (ER) | payer MEDICARE ==
[2022-06-28] MEDS ORDERED: hydrOXYzine HCl 50 MG/ML SDV IM ONE (08:39)
[2022-06-28] MEDS: Morphine 10 MG/ML SDV IM ONE ×2 (08:44→08:52)
== END 2022-06-28 09:40 | disposition home or self-care (01) ==
LOC: FB.ED 08:01
DX: M54.41 Lumbago with sciatica, right side (principal); E78.00 Pure hypercholesterolemia, unspecified; E11.9 Type 2 diabetes mellitus without complications; E66.9 Obesity, unspecified; Z68.34 Body mass index [BMI] 34.0-34.9, adult; Z88.8 Allergy status to other drugs, medicaments and biological substances; Z79.82 Long term (current) use of aspirin; Z79.899 Other long term (current) drug therapy; Z79.84 Long term (current) use of oral hypoglycemic drugs; Z90.49 Acquired absence of other specified parts of digestive tract
CPT/HCPCS: 96372; 99283; J2270; J3410

== ENCOUNTER 2022-08-04 15:38 | Emergency (ER) | payer MEDICARE ==
[2022-08-04] MEDS: Morphine 4 MG/ML VIAL IM ONE ×2 (16:10→16:22)
[2022-08-04] MEDS: hydrOXYzine HCl 50 MG/ML SDV IM ONE (16:21)
== END 2022-08-04 16:55 | disposition home or self-care (01) ==
LOC: FB.ED 15:38
DX: M54.50 Low back pain, unspecified (principal); G89.29 Other chronic pain; E78.00 Pure hypercholesterolemia, unspecified; K21.9 Gastro-esophageal reflux disease without esophagitis; E11.9 Type 2 diabetes mellitus without complications; E66.9 Obesity, unspecified; Z68.31 Body mass index [BMI] 31.0-31.9, adult; Z88.8 Allergy status to other drugs, medicaments and biological substances; Z79.82 Long term (current) use of aspirin; Z79.899 Other long term (current) drug therapy; Z79.84 Long term (current) use of oral hypoglycemic drugs
CPT/HCPCS: 96372; 99283; J2270; J3410